=== PATIENT | female | born 1995 ===

== ENCOUNTER 2018-03-26 19:38 | Emergency (ER) | payer MEDICAID ==
[2018-03-26 20:47] VITALS: BP 108/68; PULSE 77; RESP 18; TEMP 98.3; O2SAT 98
--- NOTE | 2018-03-26 21:43 | C.PDOC ---
History Of Present Illness 22 y/o female presents to the ED complaining of pain to the right eye s/p trauma. Patient states she accidentally scratched the right eye against an aloe vera plant. Associated with some tearing from the eye. No eye discharge, bleeding, or headache. Patient does not wear contact lenses. Time Seen by Provider: 03/26/18 21:05 Chief Complaint (Nursing): Eye Problem History Per: Patient History/Exam Limitations: no limitations Onset/Duration Of Symptoms: Hrs Current Symptoms Are (Timing): Still Present Wears Contact Lens?: No Past Medical History Reviewed: Historical Data, Nursing Documentation, Vital Signs Vital Signs: Last Vital Signs Temp 98.3 F 03/26/18 20:42 Pulse 77 03/26/18 20:42 Resp 18 03/26/18 20:42 BP 108/68 03/26/18 20:42 Pulse Ox 98 03/26/18 20:42 - Medical History PMH: No Chronic Diseases Surgical History: Appendectomy Family History: States: Unknown Family Hx - Social History Hx Tobacco Use: No Hx Alcohol Use: No Hx Substance Use: No - Immunization History Hx Tetanus Toxoid Vaccination: Yes Hx Influenza Vaccination: No Hx Pneumococcal Vaccination: No Review Of Systems Constitutional: Negative for: Fever Eyes: Positive for: Pain (+ increased tearing). Negative for: Conjunctivae Inflammation, Redness, Other (discharge) Neurological: Negative for: Headache, Dizziness Physical Exam - Physical Exam Appears: Non-toxic, No Acute Distress Skin: No Rash Head: Normacephalic Eye(s): bilateral: PERRL, EOMI, right: Other (No conjunctival erythema or subconjunctival hemorrhage; (+) slightly crescent-shaped abrasion below the right pupil, VA 20/20 w/o correction) Nose: Normal Oral Mucosa: Moist Neurological/Psych: Oriented x3, Normal Cranial Nerves Gait: Steady ED Course And Treatment O2 Sat by Pulse Oximetry: 98 (RA) Pulse Ox Interpretation: Normal Progress Note: Patient will be treated with erythromycin, tobrex ointment. Given referral to ophthalmology and encouraged to follow up for persistent symptoms. Disposition Counseled Patient/Family Regarding: Diagnosis, Need For Followup, Rx Given - Disposition Referrals: Stephan Harvey MD [Staff Provider] - Disposition: HOME/ ROUTINE Disposition Time: 22:01 Condition: STABLE Additional Instructions: Please follow up with PMD or EYE doctor as needed Apply Tobrex oint 2-3 x daily for 2-3 days Apply cold compress Avoid rubbing the eye Return to ER if severe pain, discharge, unable to see or worse Instructions: Corneal Abrasion (DC) Forms: [employer] ([place]orean) - Clinical Impression Clinical Impression: Corneal abrasion - 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 - Scribe Statement The provider has reviewed the documentation as recorded by the Scribe Tala Josue All medical record entries made by the Scribe were at my direction and personally dictated by me. I have reviewed the chart and agree that the record accurately reflects my personal performance of the history, physical exam, medical decision making, and the department course for this patient. I have also personally directed, reviewed, and agree with the discharge instructions and disposition.
[2018-03-26] MEDS ORDERED: Tobramycin 0.3% OPH OINT OD STA (21:48)
[2018-03-26] MEDS ORDERED: Tobramycin 0.3% OPH OINT ONE (21:56)
== END 2018-03-26 22:21 | disposition home or self-care (01) ==
LOC: C.ER 19:38
DX: S05.01XA Injury of conjunctiva and corneal abrasion without foreign body, right eye, initial encounter (principal); W22.8XXA Striking against or struck by other objects, initial encounter; Y92.9 Unspecified place or not applicable

== ENCOUNTER 2018-05-07 09:00 | Emergency (ER) | payer MEDICAID | END 2018-05-07 11:53 | disposition home or self-care (01) | LOC: C.ER 09:00 ==

== ENCOUNTER 2018-05-22 08:57 | Outpatient (CLI) | payer MEDICAID | END 2018-05-22 08:58 | disposition home or self-care (01) | LOC: C.USIC 08:58 | DX: N92.0 Excessive and frequent menstruation with regular cycle (principal) ==